=== PATIENT | male | born 1955 ===

== ENCOUNTER 2024-11-28 05:15 | Day surgery (SDC) | payer OTHER ==
[2024-11-21 07:44] VITALS: BP 125/77
[2024-11-21 07:46] LABS: BASO % 0.7 % (0.1-1.2); EOS # 0.30 (0.04-0.54); EOS % 3.9 % (0.7-7.0); LYMPH # 3.24 (1.18-3.74); LYMPH % 42.3 % (19.3-53.1); MEAN PLATELET VOLUME 10.00 fl (9.4-12.4); MONO # 0.67 (0.24-0.82); MONO % 8.7 % (4.7-12.5); NEUT # 3.38 (1.56-6.13); NEUT % 44.1 % (34.0-71.1); RED CELL DISTRIBUTION WIDTH 13.0 % (11.6-14.4)
[2024-11-21 07:48] LABS: URINE APPEARANCE Clear; URINE BILIRRUBIN Negative (NEGATIVE); URINE BLOOD Negative; URINE COLOR Yellow; URINE GLUCOSE Negative (NEGATIVE); URINE KETONE Negative (NEGATIVE); URINE LEUKOCYTE Negative; URINE NITRATE Negative; URINE PROTEIN Negative (NEGATIVE); URINE UROBILINOGEN 0.2 E.U./dl
[2024-11-21 07:49] LABS: URINE RBC 5.1 uL (0.0-20.8); URINE WBC 2.7 uL (0.0-23.2)
[2024-11-21 08:01] LABS: INR 1.0
[2024-11-21 08:18] LABS: ALT/SGPT 20.0 U/L (12-78); AST/SGOT 14.0 U/L (15-37); BILIRUBIN TOTAL 0.41 mg/dL (0.3-1.2); BUN CREA RATIO 16.0 (7.0-25.0); CREATININE SERUM 1.05 mg/dL (0.70-1.30); GFR 70.45; GLOBULINA 3.5 G/DL (2.4-3.5); GLUCOSE FASTING 109.0 mg/dL (65-100); OSMOLALITY SERUM 287.0 MOSM/KG (275-295)
[2024-11-21 08:29] LABS: URINE BACTERIA 2.3 uL (0.0-1933); URINE CAST 0.00 uL (0.0-1.40); URINE EPITHELIAL CELLS 0.6 uL (0.0-38.8)
[~2024-11-28] VITALS: Ht 172.7 cm; Wt 81.6 kg
[~2024-11-28 05:15] MED LIST: NEURONTIN600 M1 PO; NORVASC10 MG PO
[2024-11-28] MEDS ORDERED: CEFAZOLIN SODIUM 1,000 MG VIAL IV SCH (08:15)
== END 2024-11-28 14:40 | disposition home or self-care (01) ==
LOC: CIR.AMB 05:15
PROVIDERS: ATTEND Surgery
DX: K40.90 Unilateral inguinal hernia, without obstruction or gangrene, not specified as recurrent (principal); Z91.013 Allergy to seafood; Z88.2 Allergy status to sulfonamides; Z88.8 Allergy status to other drugs, medicaments and biological substances
CPT/HCPCS: 49505; C1781